=== PATIENT | female | born 2000 | race African-American/Black ===

== ENCOUNTER → 2020-02-24 | Outpatient (CLI) | payer SELFPAY | LOC: M LABSMTC 13:06 | PROVIDERS: ATTEND Pediatrics | DX: Z20.822 Contact with and (suspected) exposure to COVID-19 (principal) ==

== ENCOUNTER 2021-08-15 21:41 | Inpatient (IN) | payer OTHER ==
[~2021-08-15] VITALS: Ht 167.6 cm; Wt 99.0 kg
[2021-08-15] MEDS ORDERED: HUMU70IN SC (22:03)
[2021-08-15] MEDS ORDERED: HUMA100I3 SC (22:03)
[2021-08-15] MEDS ORDERED: PRENTAB9 PO (22:03)
[2021-08-15] MEDS ORDERED: ASPI81CH33 PO (22:03)
[2021-08-15 22:06] VITALS: BP 145/94
[2021-08-15 22:10] VITALS: BP 140/86
[2021-08-15 22:36] LABS: HEMATOCRIT 36.6 % (36.0-47.0); HEMOGLOBIN 12.6 g/dl (12.0-15.5); MEAN CORPUSCULAR HEMOGLOBIN 28.3 pg (27.0-33.0); MEAN CORPUSCULAR HGB CONC 34.4 g/dl (32.0-36.5); MEAN CORPUSCULAR VOLUME 82.1 fl (80.0-96.0); PLATELET COUNT, AUTOMATED 229 10^3/uL (150-450); RED BLOOD COUNT 4.46 10^6/uL (4.00-5.40); WHITE BLOOD COUNT 8.5 10^3/uL (4.0-10.0)
[2021-08-15 22:38] VITALS: BP 139/81
[2021-08-15] MEDS ORDERED: INSULIN IV RATE CHANGE DOCUMENTATION ML/HR XX SCH (22:45)
[2021-08-15] MEDS ORDERED: INSULIN REGULAR IN 0.9 % NACL 100 UNIT in IV 1 EA IV SCH ×2 (22:45)
[2021-08-15] MEDS ORDERED: D5W/0.9% SODIUM CHLORIDE 1,000 ML IV SCH (22:45)
[2021-08-15] MEDS ORDERED: LIDOCAINE 1% MDV 20ML VIAL INFIL PRN (22:45)
[2021-08-15] MEDS ORDERED: OXYTOCIN DRIP 30 UNITS in IV 1 EA IV PRN ×4 (22:45)
[2021-08-15 22:52] VITALS: BP 143/87
[2021-08-15 23:22] VITALS: BP 172/96
[2021-08-16] VITALS (73 sets, daily range): BP systolic 123–181; BP diastolic 58–115
[2021-08-16] MEDS: NS 1,000 ML IV SCH ×3 (00:10→22:36)
[2021-08-16 00:11] LABS: ALT/SGPT 20 U/L (12-78); BILIRUBIN,TOTAL 0.6 MG/DL (0.2-1.0); CREATININE FOR GFR 0.67 MG/DL (0.55-1.30); GLOMERULAR FILTRATION RATE > 60.0 (>60); LDH LACTATE DEHYDROGENASE 198 U/L (84-246); URIC ACID 4.4 MG/DL (2.6-6.0)
[2021-08-16] MEDS: miSOPROStol 25MCG 1/4 TABLET PO SCH ×2 (00:21→05:26)
[2021-08-16] MEDS ORDERED: CALCIUM GLUCONATE 1,000 MG in D5W MINI-BAG PLUS 100 ML IV PRN (03:45)
[2021-08-16] MEDS ORDERED: hydrALAZINE 20MG/ML 1ML VIAL (J0360 PER 20MG) IV ONE (04:00)
[2021-08-16] MEDS ORDERED: MAG Sulf (L&D) 4 GM/100 ML 4 GM in IV 1 EA IV ONE (04:00)
[2021-08-16] MEDS: MAG Sulf (OBGYN) 20GM/500ML 20,000 MG in IV 1 EA IV SCH ×2 (04:43→14:56)
[2021-08-16] MEDS: miSOPROStol 50MCG 1/2 TABLET PO SCH ×3 (09:56→18:06)
[2021-08-16] MEDS ORDERED: PENICILLIN G POTASSIUM IV 5 MU in D5W MINI-BAG PLUS 100 ML IV ONE (10:00)
[2021-08-16] MEDS: PENICILLIN G POTASSIUM IV 2.5 MU in IV 1 EA IV SCH ×3 (14:19→22:26)
[2021-08-16] MEDS ORDERED: FENTANYL 2MCG/ML ROPIVACAINE 0.2% IN 0.9% NACL 100ML IVBAG As Ordered ONE (20:21)
[2021-08-16] MEDS ORDERED: diphenhydrAMINE 50MG/ML VIAL (J1200) IV PRN (20:35)
[2021-08-16] MEDS ORDERED: NALOXONE INJ 0.4MG/1ML VIAL (J2310 PER 1MG) IV PRN (20:35)
[2021-08-16] MEDS ORDERED: EPIDURAL/PCA KEYS XX PRN (20:35)
[2021-08-16] MEDS ORDERED: FENTANYL/ROPIVACAINE/NACL BAG 100 ML EPIDURAL SCH (20:35)
[2021-08-16] MEDS ORDERED: ePHEDrine SULFATE 25 MG/5 ML(5MG/ML) SYRINGE IVP PRN (20:35)
[2021-08-16] MEDS ORDERED: ONDANSETRON 4MG 2ML VIAL IV PRN (20:35)
[2021-08-16] MEDS ORDERED: LR 500 ML IV PRN (20:35)
[2021-08-16] MEDS ORDERED: OXYTOCIN 30 UNITS IN 0.9% NaCl 500ML IV BAG (J2590) As Ordered ONE (21:32)
[2021-08-17] VITALS (28 sets, daily range): BP systolic 106–160; BP diastolic 56–101
[2021-08-17] MEDS: MAG Sulf (OBGYN) 20GM/500ML 20,000 MG in IV 1 EA IV SCH (00:32)
[2021-08-17] MEDS ORDERED: METHYLERGONOVINE MALEATE 0.2 MG/ML VIAL (J2210) IM PRN (01:40)
[2021-08-17] MEDS ORDERED: BICITRA 30ML SOLN UDC PO ONE (01:40)
[2021-08-17] MEDS ORDERED: AZITHROMYCIN INJ 500 MG, VIAL MATE ADAPTER 1 EACH in NS 250 ML IV ONE (01:40)
[2021-08-17] MEDS ORDERED: BUPIVACAINE HCL 0.25% 10ML VIAL SC ONE (01:40)
[2021-08-17] MEDS ORDERED: OXYTOCIN INJ 10 UNITS/ML VIAL (J2590) IV PRN (01:40)
[2021-08-17] MEDS ORDERED: OXYTOCIN DRIP 30 UNITS in IV 1 EA IV PRN ×4 (01:40)
[2021-08-17] MEDS ORDERED: TRANEXAMIC ACID INJection 1,000 MG in NS 100 ML IV PRN (01:40)
[2021-08-17] MEDS ORDERED: ceFAZolin SOD 2 GM in IV 1 EA IV ONE (01:40)
[2021-08-17] MEDS ORDERED: AZITHROMYCIN INJ 500MG VIAL As Ordered ONE (01:43)
[2021-08-17] MEDS ORDERED: BICITRA 30ML SOLN UDC As Ordered ONE (01:44)
[2021-08-17] MEDS ORDERED: ceFAZolin 2 GM/D5W 50 ML IV BAG (J0690 PER 500MG) As Ordered ONE (01:44)
[2021-08-17] MEDS ORDERED: ACETAMINOPHEN 650 MG SUPP PR ONE (02:00)
[2021-08-17] MEDS ORDERED: ePHEDrine SULFATE 25 MG/5 ML(5MG/ML) SYRINGE As Ordered ONE (02:15)
[2021-08-17] MEDS ORDERED: LIDOCAINE 2% W/EPINEPHRINE 20ML VIAL **PRES FREE As Ordered ONE (02:15)
[2021-08-17] MEDS ORDERED: ONDANSETRON 4MG 2ML VIAL As Ordered ONE (02:15)
[2021-08-17] MEDS ORDERED: OXYTOCIN 30 UNITS IN 0.9% NaCl 500ML IV BAG (J2590) As Ordered ONE (02:18)
[2021-08-17] MEDS ORDERED: ACETAMINOPHEN 1000MG 100ML IV BTL (OFIRMEV) (J0131 PER 10MG) As Ordered ONE (02:23)
[2021-08-17] MEDS ORDERED: KETOROLAC 60MG 2ML VIAL As Ordered ONE (02:23)
[2021-08-17] MEDS ORDERED: MORPHINE PRES-FREE INJ 10 MG/10 ML VIAL As Ordered ONE (02:27)
[2021-08-17 03:09] LABS: CORD GAS ABE V -10.8; CORD GAS HCO3 V 21.9 MEQ/L; CORD GAS O2 SAT V 16.6 %; CORD GAS PCO2 V 82.1 mmHg; CORD GAS PH V 7.043 UNITS; CORD GAS PO2 V 15.3 mmHg; CORD GAS SBC V 14.4 MEQ/L; CORD GAS TCO2 V 24.4 MEQ/L
[2021-08-17 03:11] LABS: CORD GAS ABE A -12.1; CORD GAS HCO3 A 20.8 MEQ/L; CORD GAS O2 SAT A 16.5 %; CORD GAS PCO2 A 83.5 mmHg; CORD GAS PH A 7.015 UNITS; CORD GAS PO2 A 15.6 mmHg; CORD GAS SBC A 13.6 MEQ/L; CORD GAS TCO2 A 23.4 MEQ/L
[2021-08-17] MEDS ORDERED: ANUSOL HC CREAM 30GM TOP PRN (03:30)
[2021-08-17] MEDS ORDERED: MOM 30ML SUSPENSION UDC PO PRN (03:30)
[2021-08-17] MEDS ORDERED: SIMETHICONE 80MG CHEW TAB PO PRN (03:30)
[2021-08-17] MEDS ORDERED: METHYLERGONOVINE MALEATE 0.2 MG/ML VIAL (J2210) IM ONE (03:30)
[2021-08-17] MEDS ORDERED: PERCOCET 5MG/325MG TAB PO PRN ×2 (03:30)
[2021-08-17] MEDS ORDERED: OXYTOCIN DRIP 30 UNITS in IV 1 EA IV ONE (03:30)
[2021-08-17] MEDS ORDERED: OXYTOCIN INJ 10 UNITS/ML VIAL (J2590) IV ONE (03:30)
[2021-08-17] MEDS ORDERED: ACETAMINOPHEN 650 MG SUPP PR PRN (03:30)
[2021-08-17] MEDS ORDERED: DOCUSATE SODIUM 100MG CAPSULE PO PRN (03:30)
[2021-08-17] MEDS ORDERED: OXYTOCIN DRIP 30 UNITS in IV 1 EA IV SCH (03:30)
[2021-08-17] MEDS ORDERED: ACETAMINOPHEN TAB 650MG DOSE (2X325MG) PO PRN (03:30)
[2021-08-17] MEDS ORDERED: RHOGAM 300 MCG (1500 IU) INJ (J2790) IM SCH (03:30)
[2021-08-17] MEDS ORDERED: NALOXONE INJ 0.4MG/1ML VIAL (J2310 PER 1MG) IV PRN ×2 (03:35)
[2021-08-17] MEDS ORDERED: diphenhydrAMINE 50MG/ML VIAL (J1200) IV PRN (03:35)
[2021-08-17] MEDS ORDERED: ONDANSETRON 4MG 2ML VIAL IV PRN (03:35)
[2021-08-17] MEDS ORDERED: oxyCODONE 5MG TAB PO PRN (03:35)
[2021-08-17] MEDS ORDERED: fentaNYL 100 MCG/2 ML INJECTION IV PRN (03:35)
[2021-08-17] MEDS ORDERED: METOCLOPRAMIDE INJ 10MG/2ML VIAL (J2765 PER 1) IV PRN (03:35)
[2021-08-17] MEDS ORDERED: **NOTE PATIENT COMMENT** MISC XX SCH (03:35)
[2021-08-17] MEDS ORDERED: MEPERIDINE INJ 25 MG/ML VIAL (J2175) IV PRN (03:35)
[2021-08-17] MEDS ORDERED: HYDROMORPHONE HCL 0.5 MG/ 0.5 ML SYRINGE (J1170 PER 1) IV PRN (03:35)
[2021-08-17] MEDS: LR 1,000 ML IV SCH ×2 (04:01→12:19)
[2021-08-17] MEDS: SLF 3 ML SYR IV SCH ×3 (04:05→21:46)
[2021-08-17] MEDS ORDERED: METHYLERGONOVINE MALEATE 0.2 MG TAB PO PRN (07:00)
[2021-08-17 08:29] LABS: HEMATOCRIT 33.7 % (36.0-47.0); HEMOGLOBIN 11.4 g/dl (12.0-15.5); MEAN CORPUSCULAR HEMOGLOBIN 27.9 pg (27.0-33.0); MEAN CORPUSCULAR HGB CONC 33.8 g/dl (32.0-36.5); MEAN CORPUSCULAR VOLUME 82.4 fl (80.0-96.0); PLATELET COUNT, AUTOMATED 189 10^3/uL (150-450); RED BLOOD COUNT 4.09 10^6/uL (4.00-5.40); WHITE BLOOD COUNT 14.5 10^3/uL (4.0-10.0)
[2021-08-17] MEDS: KETOROLAC 30 MG/ML 1ML VIAL IV SCH ×3 (09:11→21:46)
[2021-08-17] MEDS: PRENATAL VITAMINS CHEWABLE TABLET PO SCH (09:11)
[2021-08-18 02:00] VITALS: BP_SYST 139; BP_SYST 142; BP_DIAS 71; BP_DIAS 82
[2021-08-18 06:00] VITALS: BP 139/83
[2021-08-18] MEDS: PRENATAL VITAMINS CHEWABLE TABLET PO SCH (07:25)
[2021-08-18 10:15] VITALS: BP 130/82
[2021-08-18 14:00] VITALS: BP 139/79
[2021-08-18] MEDS: IBUPROFEN 600MG TAB PO PRN ×2 (16:10→22:55)
[2021-08-18] MEDS: ACETAMINOPHEN 500 MG TAB PO PRN (17:35)
[2021-08-18 18:00] VITALS: BP 142/92
[2021-08-18 22:00] VITALS: BP 138/79
[2021-08-19] MEDS: ACETAMINOPHEN 500 MG TAB PO PRN ×2 (00:01→07:18)
[2021-08-19 02:00] VITALS: BP 142/78
[2021-08-19 06:00] VITALS: BP 145/88
[2021-08-19] MEDS: PRENATAL VITAMINS CHEWABLE TABLET PO SCH (07:17)
[2021-08-19] MEDS ORDERED: MEASLES,MUMPS,RUBELLA VACCINE INJ (MMR-II) (90707) SC.IMMUN ONE (09:00)
[2021-08-19 10:00] VITALS: BP 142/82
[2021-08-19] MEDS ORDERED: COLA100C5 PO (12:43)
[2021-08-19] MEDS ORDERED: IBUP-1022 PO (12:43)
[2021-08-19] MEDS ORDERED: PERCOCET PO (12:43)
[2021-08-19] MEDS ORDERED: PRENCHW PO (12:43)
== END 2021-08-19 13:30 | disposition home or self-care (01) | DRG 773 ==
LOC: M LDI 21:41 → M OBS 08-17 05:02
PROVIDERS: ADMIT Obstetrics & Gynecology; ATTEND Obstetrics & Gynecology
PROC: 3E0P7GC Introduction of Other Therapeutic Substance into Female Reproductive, Via Natural or Artificial Opening (ICD-10-PCS; 2021-08-15)
PROC: 10D00Z1 Extraction of Products of Conception, Low, Open Approach (ICD-10-PCS; principal; 2021-08-17 02:15)
DX: O11.4 Pre-existing hypertension with pre-eclampsia, complicating childbirth (principal); Z3A.37 37 weeks gestation of pregnancy; O99.824 Streptococcus B carrier state complicating childbirth; O24.414 Gestational diabetes mellitus in pregnancy, insulin controlled; Z79.4 Long term (current) use of insulin; Z37.0 Single live birth; O10.02 Pre-existing essential hypertension complicating childbirth